=== PATIENT | male | born 1955 | race Caucasian/White ===

== ENCOUNTER 2017-08-07 07:45 | Emergency (ER) | payer OTHER ==
--- NOTE | 2017-08-07 08:23 | EDPHY ---
H & P Stated Complaint: dizzy Time Seen by Provider: 08/07/17 08:11 HPI/ROS: Chief Complaint: Dizziness, neck pain HPI: 62-year-old male began having dizziness and neck pain after yoga on Monday. Patient describes room spinning when he gets up from a horizontal position. He has also had pain in the left side of his neck since that time. Some nausea, no vomiting. No headaches. No numbness or weakness. His partner is a massage therapist and has also been doing significant neck manipulation. They state that the yoga was highly focused on the neck as well. 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 Denies any other recent trauma. No fevers or chills. ROS: 10 point Review of Systems is negative except as noted in the HPI. PMH: Unprovoked axillary vein thrombus Social History: No smoking, occasional alcohol, occasional marijuana Family History: non-contributory Physical Exam: Gen: Awake, Alert, No Distress HEENT: Nose: no rhinorrhea Eyes: PERRLA, EOMI Mouth: Moist mucosa Neck: Supple, no JVD Chest: nontender, lungs clear to auscultation Heart: S1, S2 normal, no murmur Abd: Soft, non-tender, no guarding Back: no CVA tenderness, no midline tenderness Ext: no edema, non-tender Skin: no rash Neuro: CN II-XII intact, Sensation grossly intact, Strength 5/5 in bilateral upper and lower extremities, normal finger-nose, normal heel-navarro - Personal History Current Tetanus/Diphtheria Vaccine: Unsure Current Tetanus Diphtheria and Acellular Pertussis (TDAP): Unsure - Medical/Surgical History Hx Asthma: No Hx Chronic Respiratory Disease: No Hx Diabetes: No Hx Cardiac Disease: No Hx Renal Disease: No Hx Cirrhosis: No Hx Alcoholism: No Hx HIV/AIDS: No Hx Splenectomy or Spleen Trauma: No Other PMH: axillary thrombosis 2013, JESSICA knee surgery - Social History Smoking Status: Never smoked Constitutional: Initial Vital Signs Temperature (C) 36.3 C 08/07/17 07:50 Heart Rate 57 L 08/07/17 07:50 Respiratory Rate 16 08/07/17 07:50 Blood Pressure 149/97 H 08/07/17 07:50 O2 Sat (%) 100 08/07/17 07:50 O2 Delivery Mode Room Air Allergies/Adverse Reactions: No Known Allergies Allergy (Unverified 08/07/17 07:50) Home Medications: Medication Instructions Recorded NK [No Known Home Meds] 08/07/17 Medical Decision Making - Diagnostics Imaging Results: Imaging Impressions Head CT 08/07/17 08:20 Impression: No acute intracranial pathology. Findings and recommendations discussed with Raoul Cates MD at 9:31 AM hour , 08/07/2017. Head CTA 08/07/17 08:20 Impression: Normal. Findings and recommendations discussed with Raoul Cates MD at 9:30 hour, . Neck CTA 08/07/17 08:20 Impression: Normal. Note: All stenoses are calculated using NASCET Criteria. ED Course/Re-evaluation: 62-year-old male presenting with vertiginous symptoms, primarily positional however he has had persistent neck pain and has had neck manipulation prior to the onset. Patient also has a history of an unprovoked axillary vein thrombus. Plan will be to obtain a CT scan of the head and a CT angiogram of the head neck to rule out vertebral artery dissection. CT scan of the head and CT angiogram of the head neck are normal per Dr. Carter. Patient is currently symptom free. Will discharge with follow-up as an outpatient, return for any concerns. - Data Points Laboratory Results: Laboratory Results 08/07/17 08:20 08/07/17 08:20 08/07/17 08/07/17 08:20 08:20 WBC 6.84 10^3/uL 10^3/uL (3.80-9.50) RBC 5.73 10^6/uL 10^6/uL (4.40-6.38) Hgb 17.0 g/dL g/dL (13.7-17.5) Hct 51.0 % % (40.0-51.0) MCV 89.0 fL fL (81.5-99.8) MCH 29.7 pg pg (27.9-34.1) MCHC 33.3 g/dL g/dL (32.4-36.7) RDW 12.9 % % (11.5-15.2) Plt Count 273 10^3/uL 10^3/uL (150-400) MPV 10.7 fL fL (8.7-11.7) Neut % (Auto) 60.8 % % (39.3-74.2) Lymph % (Auto) 22.7 % % (15.0-45.0) Swain % (Auto) 11.3 % % (4.5-13.0) Eos % (Auto) 3.8 % % (0.6-7.6) Baso % (Auto) 1.0 % % (0.3-1.7) Nucleat RBC Rel Count 0.0 % % (0.0-0.2) Absolute Neuts (auto) 4.16 10^3/uL 10^3/uL (1.70-6.50) Absolute Lymphs (auto) 1.55 10^3/uL 10^3/uL (1.00-3.00) Absolute Monos (auto) 0.77 10^3/uL 10^3/uL (0.30-0.80) Absolute Eos (auto) 0.26 10^3/uL 10^3/uL (0.03-0.40) Absolute Basos (auto) 0.07 10^3/uL 10^3/uL (0.02-0.10) Absolute Nucleated RBC 0.00 10^3/uL 10^3/uL (0-0.01) Immature Gran % 0.4 % % (0.0-1.1) Immature Gran # 0.03 10^3/uL 10^3/uL (0.00-0.10) Sodium 143 mEq/L mEq/L (135-145) Potassium 4.7 mEq/L mEq/L (3.5-5.2) Chloride 105 mEq/L mEq/L (97-110) Carbon Dioxide 29 mEq/l mEq/l (22-31) Anion Gap 9 mEq/L mEq/L (8-16) BUN 24 mg/dL H mg/dL (7-23) Creatinine 1.1 mg/dL mg/dL (0.7-1.3) Estimated GFR > 60 Glucose 79 mg/dL mg/dL (70-100) Calcium 10.2 mg/dL mg/dL (8.5-10.4) Medications Given: Discontinued Medications Sodium Chloride (Ns) 1,000 mls @ 0 mls/hr IV ONCE ONE; Wide Open PRN Reason: Protocol Stop: 08/07/17 09:05 Last Admin: 08/07/17 09:21 Dose: 1,000 mls Departure - Departure Disposition: Home, Routine, Self-Care Clinical Impression: Dizziness Condition: Good Instructions: Dizziness (ED) Additional Instructions: Follow up with your primary care physician in 3-4 days for further evaluation. Return to the emergency department for worsening dizziness, falls, headache, nausea, vomiting, or any other concerns. Referrals: JABIER GRANT [Other] - As per Instructions
[2017-08-07 08:30] LABS: PLATELET COUNT 273 10^3/uL (150-400)
[2017-08-07] MEDS ORDERED: IOPAMIDOL (ISOVUE 370) 100 ML BTL IV ONE (08:42)
[2017-08-07] MEDS ORDERED: NS 1,000 ML IV ONE (09:04)
[2017-08-07 10:37] VITALS: BP 144/99; PULSE 57; RESP 18; TEMP 98.4; O2SAT 99
== END 2017-08-07 10:37 | disposition home or self-care (01) ==
DX: R42 Dizziness and giddiness (principal); E86.9 Volume depletion, unspecified
CPT/HCPCS: Q9967

== ENCOUNTER → 2018-06-18 | Outpatient (CLI) | payer OTHER | LOC: BMCIMAGING 15:48 | PROVIDERS: ATTEND Internal Medicine | DX: M17.11 Unilateral primary osteoarthritis, right knee (principal); M11.261 Other chondrocalcinosis, right knee ==